=== PATIENT | male | born 2000 ===

== ENCOUNTER 2024-10-11 07:26 | Outpatient (CLI) | payer OTHER ==
[2024-10-11 08:14] LABS: BASO % 0.7 % (0.1-1.2); EOS # 0.14 (0.04-0.54); EOS % 1.9 % (0.7-7.0); LYMPH # 2.44 (1.18-3.74); LYMPH % 32.8 % (19.3-53.1); MEAN PLATELET VOLUME 9.10 fl (9.4-12.4); MONO # 0.73 (0.24-0.82); MONO % 9.8 % (4.7-12.5); NEUT # 4.03 (1.56-6.13); NEUT % 54.3 % (34.0-71.1); RED CELL DISTRIBUTION WIDTH 11.4 % (11.6-14.4)
[2024-10-11 09:08] LABS: ALT/SGPT 24.0 U/L (12-78); AST/SGOT 13.0 U/L (15-37); BILIRUBIN TOTAL 1.04 mg/dL (0.3-1.2); BUN CREA RATIO 17.0 (7.0-25.0); CREATININE SERUM 0.86 mg/dL (0.70-1.30); GFR 110.2; GLOBULINA 3.1 G/DL (2.4-3.5); GLUCOSE FASTING 106.0 mg/dL (65-100); OSMOLALITY SERUM 284.0 MOSM/KG (275-295)
== END 2024-10-11 07:30 | disposition home or self-care (01) ==
LOC: LAB 07:26
DX: Z11.4 Encounter for screening for human immunodeficiency virus [HIV] (principal); R79.89 Other specified abnormal findings of blood chemistry; R68.89 Other general symptoms and signs

== ENCOUNTER 2025-03-29 06:07 | Emergency (ER) | payer OTHER ==
[~2025-03-29] VITALS: Ht 162.6 cm; Wt 74.8 kg
[2025-03-29] MEDS ORDERED: GUAIFENESIN/DEXTROMETHORPHAN 100MG/10ML BLIST.PACK PO STA (07:28)
[2025-03-29] MEDS ORDERED: GUAIFEN/DEXTROMETHORPHAN/PE 10 ML BLIST.PACK PO ONE (07:30)
[2025-03-29 07:47] LABS: BASO % 0.5 % (0.1-1.2); EOS # 0.02 (0.04-0.54); EOS % 0.2 % (0.7-7.0); LYMPH # 0.88 (1.18-3.74); LYMPH % 8.7 % (19.3-53.1); MEAN PLATELET VOLUME 9.20 fl (9.4-12.4); MONO # 1.36 (0.24-0.82); NEUT # 7.71 (1.56-6.13); NEUT % 76.7 % (34.0-71.1); RED CELL DISTRIBUTION WIDTH 10.9 % (11.6-14.4)
[2025-03-29 07:52] LABS: MONO % 13.5 % (4.7-12.5)
[2025-03-29 08:15] LABS: COVID-19 AG NEGATIVE (NEGATIVE)
[2025-03-29] MEDS ORDERED: AMOX-CLAV 875-1 EAC1 PO (08:45)
[2025-03-29] MEDS ORDERED: MUCINEX DM ER1 EAC1 PO (08:45)
== END 2025-03-29 09:00 | disposition home or self-care (01) ==
LOC: ER 06:07
PROVIDERS: General Practice
DX: J06.9 Acute upper respiratory infection, unspecified (principal); Z20.822 Contact with and (suspected) exposure to COVID-19